=== PATIENT | male | born 2000 | race Two or more races ===

== ENCOUNTER → 2018-12-04 | Outpatient (CLI) | payer MEDICAID | END | disposition home or self-care (01) | LOC: LAB 08:47 | PROVIDERS: ATTEND Nurse Practitioner Family | DX: Z11.3 Encounter for screening for infections with a predominantly sexual mode of transmission (principal); N52.9 Male erectile dysfunction, unspecified; Z20.2 Contact with and (suspected) exposure to infections with a predominantly sexual mode of transmission | CPT/HCPCS: 87591 ==

== ENCOUNTER 2019-02-23 21:46 | Emergency (ER) | payer MEDICAID ==
[~2019-02-23] VITALS: Ht 180.3 cm; Wt 81.6 kg
[2019-02-23 22:02] VITALS: BP 144/81
[2019-02-24] MEDS ORDERED: cefTRIAXone SOD 1,000 MG VL IM ONE (01:15)
[2019-02-24] MEDS ORDERED: DexAMETHasone SOD PHOS 10MG/1ML VIAL INJ IM ONE (01:15)
== END 2019-02-24 01:50 | disposition home or self-care (01) ==
LOC: ER 21:48
DX: L73.1 Pseudofolliculitis barbae (principal)
CPT/HCPCS: 96372; 99283; J0696; J1100